=== PATIENT | female | born 1980 | race Caucasian/White ===

== ENCOUNTER 2025-07-04 10:14 | Emergency (ER) | payer BC ==
[~2025-07-04] VITALS: Ht 162.6 cm; Wt 68.0 kg
[2025-07-04 10:49] VITALS: O2SAT 95
[2025-07-04] MEDS: ALBUTEROL FS 2.5 MG/3 ML VIAL.NEB NEB ONE (10:49)
[2025-07-04] MEDS ORDERED: ALBUTEROL FS 2.5 MG/3 ML VIAL.NEB ONE (10:52)
[2025-07-04] MEDS ORDERED: ALBU18HF2 INH (10:54)
[2025-07-04 10:58] VITALS: O2SAT 95
[2025-07-04 11:11] VITALS: BP 145/87; TEMP 98.3; O2SAT 96
== END 2025-07-04 11:11 | disposition home or self-care (01) ==
LOC: ER 10:20
DX: J45.909 Unspecified asthma, uncomplicated (principal); R05.9 Cough, unspecified; R09.89 Other specified symptoms and signs involving the circulatory and respiratory systems; Z88.0 Allergy status to penicillin; Z88.1 Allergy status to other antibiotic agents
CPT/HCPCS: 99283; 94640; J7512